=== PATIENT | male | born 1995 | race Caucasian/White ===

== ENCOUNTER 2019-08-29 10:42 | Emergency (ER) | payer SELFPAY ==
[~2019-08-29] VITALS: Ht 172.7 cm; Wt 82.0 kg
[2019-08-29] MEDS ORDERED: ALBU18HF2 IH (10:51)
[2019-08-29] MEDS ORDERED: IPRATROPIUM BROMIDE (0.02%) 0.5MG/2.5ML NEB HHN NR (11:29)
[2019-08-29] MEDS ORDERED: ALBUTEROL (0.083%) 2.5MG/3ML NEB HHN NR (11:29)
[2019-08-29] MEDS ORDERED: PREDNISONE 20MG TABLET PO NR (11:32)
[2019-08-29] MEDS ORDERED: ALBUTEROL (0.083%) 2.5MG/3ML NEB ONE (11:49)
[2019-08-29] MEDS ORDERED: IPRATROPIUM BROMIDE (0.02%) 0.5MG/2.5ML NEB ONE (11:50)
[2019-08-29 12:23] VITALS: BP 116/66
== END 2019-08-29 12:24 | disposition home or self-care (01) ==
LOC: ER 10:42
DX: J45.901 Unspecified asthma with (acute) exacerbation (principal)
CPT/HCPCS: 99283; J7512; Z7610